=== PATIENT | female | born 1945 | race Caucasian/White ===

== ENCOUNTER → 2017-02-24 | Outpatient (CLI) | payer MEDICARE | LOC: RAD 13:03 | PROVIDERS: ATTEND Internal Medicine | DX: C25.2 Malignant neoplasm of tail of pancreas (principal) | CPT/HCPCS: 71260; 74177 ==

== ENCOUNTER 2017-02-28 06:22 | Day surgery (SDC) | payer MEDICARE ==
[~2017-02-28 06:22] MED LIST: DEXTROSE 5%-1/2 NORMAL SALINE 1,000 ML IV PRN; VANCOMYCIN HCL 500 MG in DEXTROSE 5%-WATER 100 ML IV SCH
[2017-02-28 06:46] LABS: ABSOLUTE BASOPHILS # (AUTO) 0.1 10^3/uL (0.0-0.2); ABSOLUTE EOSINOPHILS # (AUTO) 0.5 10^3/uL (0.0-0.6); ABSOLUTE LYMPHOCYTES (AUTO) 3.4 10^3/uL (0.5-4.7); BASOPHILS % (AUTO) 0.7 % (0-2); EOSINOPHILS % (AUTO) 4.6 % (0-6); HEMATOCRIT 34.4 % (36.0-47.0); HEMOGLOBIN 11.2 g/dL (12.0-15.5); HGB HCT DIFFERENCE -0.8; LYMPHOCYTES % (AUTO) 30.8 % (13-45); MEAN CORPUSCULAR HEMOGLOBIN 28.5 pg (27.0-33.4); MEAN CORPUSCULAR HGB CONC 32.7 g/dL (32.0-36.0); MEAN CORPUSCULAR VOLUME 87 fl (80-97); MONOCYTES % (AUTO) 9.3 % (3-13); RED BLOOD COUNT 3.94 10^6/uL (3.72-5.28); RED CELL DISTRIBUTION WIDTH 15.5 % (11.5-14.0); SEGMENTED NEUTROPHILS % (AUTO) 54.6 % (42-78); WHITE BLOOD COUNT 10.9 10^3/uL (4.0-10.5)
[2017-02-28 06:58] LABS: ANION GAP 9 (5-19); BLOOD UREA NITROGEN 16 mg/dL (7-20); CARBON DIOXIDE 29 mmol/L (22-30); CHLORIDE 104 mmol/L (98-107); CREATININE RESULT 0.69 mg/dL (0.52-1.25); GLUCOSE 112 mg/dL (75-110); POTASSIUM 4.7 mmol/L (3.6-5.0); SODIUM 141.9 mmol/L (137-145)
[2017-02-28] MEDS ORDERED: BACITRACIN INJ 50,000 UNIT VIAL IR SCH (07:45)
--- NOTE | 2017-02-28 08:37 | EKG REPORT ---
SEVERITY:- NORMAL ECG - SINUS RHYTHM LVH : Confirmed by: Laure Diaz 28-Feb-2017 08:36:30
[2017-02-28] MEDS ORDERED: MIDAZOLAM 2 MG/2 ML INJ ONE (08:52)
[2017-02-28] MEDS ORDERED: FENTANYL CITRATE INJ/PF 100 MCG/2 ML AMPUL ONE (08:52)
[2017-02-28] MEDS ORDERED: LIDOCAINE 0.5% INJ-PF (5 MG/ML) 50 ML SDV ONE (08:53)
[2017-02-28] MEDS ORDERED: DIAZEPAM 5 MG TABLET PO ONE (09:15)
[2017-02-28] MEDS ORDERED: VANCOMYCIN HCL 500 MG in DEXTROSE 5%-WATER 100 ML IV ONE (09:20)
--- NOTE | 2017-02-28 10:30 | PDOC DISCHARGE SUMMARY ---
Discharge Summary (SDC) - Discharge Final Diagnosis: Pancreatic cancer Date of Surgery: 02/28/17 Discharge Date: 02/28/17 Condition: Fair Treatment or Instructions: #1 discharge patient after recovery per ASU criteria. #2 dressings to be left in place, clean and dry until office. #3 may shower in 48 hours, keep dressing is clean as possible. #4 hold off work until evaluated in office. #5 medications per medication reconciliation sheet. #86Percocet by prescription.. Also may have one Percocet up to every 2 hours when necessary for pain greater than 4 out of 10 while in the ASU Discharge Diet: As Tolerated Respiratory Treatments at Home: Deep Breathing/Coughing Discharge Activity: Activity As Tolerated Report the Following to Your Physician Immediately: Shortness of Breath, Unusual Bleeding
--- NOTE | 2017-02-28 10:32 | Operative Report ---
Operative Report DATE OF SURGERY: 02/28/17 PREOPERATIVE DIAGNOSIS: Pancreatic cancer POSTOPERATIVE DIAGNOSIS: The capsule post Port-A-Cath insertion. OPERATION: #1 ultrasound evaluation of right internal jugular vein. #2 real- time access into the right internal jugular venous vein under ultrasound guidance. #3 insertion of Port-A-Cath via real-time access in right internal jugular vein. #4 angiogram and interpretation. SURGEON: JANET GALLEGO TISSUE REMOVED OR ALTERED: Not applicable COMPLICATIONS: None ESTIMATED BLOOD LOSS: 5 mL. INTRAOPERATIVE FINDINGS: Satisfactory right internal jugular vein to support port. Estimated 1 cm in diameter. Satisfactory egress of blood and ingress of heparinized solution. Both flow of contrast through the right atrium, ventricle and pulmonary outflow tract. The catheter tip just down in the right atrium. PROCEDURE: After obtaining informed consent, the patient was taken to the [facility] and positioned supine. The [right] neck and chest were prepared with chlorhexidine and draped out with sterile linen. After the " universal timeout", in which it was verified that the patient continued to receive antibiotic, the procedure commenced. A steriley sheathed ultrasound probe was used to evaluate the [ right] internal jugular vein. Local anesthesia was infiltrated adjacent to the probe. Access into the [right] internal jugular vein was obtained using a micropuncture needle, followed by micropuncture wire and then a micropuncture catheter. This was followed by introduction of a 0.035 guidewire the tip of which was placed down into the inferior vena cava . The port sites was marked , locally anesthetized and incision made. Dissection now proceeded to the deep subcutaneous subcutaneous tissues so that a pocket for the port was made. Meticulous hemostasis was secured and the catheter was tunneled between the 2 incisions. Proximally, the catheter was now positioned using a peel-away sheath. Distally the catheter was tailored to an appropriate length and then mated to the port using the contained fixating device. The port was now placed in the pocket and the catheter optimally positioned. The port was accessed with a Diego needle and an angiogram done under digital subtraction. The findings as dictated. With adequate and satisfactory positioning, both lumens of the chamber were irrigated with heparinized solution. The wounds were now closed using interrupted 3-0 PDS to the subcutaneous tissues and a continuous subcuticular suture of 4-0 Monocryl to the skin. These are reinforced with Steri-Strips over benzoin and then dressings applied. Copies of the dictated operative report for Dr. Janet Gallego MD.
[2017-02-28 11:52] VITALS: BP 120/60
== END 2017-02-28 11:45 | disposition home or self-care (01) ==
LOC: CCL 06:22
PROVIDERS: ATTEND Surgery
PROC: 05H533Z Insertion of Infusion Device into Right Subclavian Vein, Percutaneous Approach (ICD-10-PCS; principal; 2017-02-28)
DX: C25.9 Malignant neoplasm of pancreas, unspecified (principal); K21.9 Gastro-esophageal reflux disease without esophagitis; N20.0 Calculus of kidney; F32.9 Major depressive disorder, single episode, unspecified; Z79.899 Other long term (current) drug therapy; Z88.0 Allergy status to penicillin; Z88.1 Allergy status to other antibiotic agents; Z88.2 Allergy status to sulfonamides; Z87.891 Personal history of nicotine dependence; Z85.828 Personal history of other malignant neoplasm of skin
CPT/HCPCS: 36415; 85025; 80048; 36561; 76937; 77001; 71010; 93005; 93010; C1788; C1752; Q9967; J2250; J3490 ×2; J3010; J1644; J3370

== ENCOUNTER → 2017-07-12 | Outpatient (CLI) | payer MEDICARE ==
--- NOTE | 2017-07-12 13:42 | RADIOLOGY REPORT (SQ) ---
EXAM DESCRIPTION: CT CHEST WITH COMPLETED DATE/TIME: 07/12/2017 9:37 am REASON FOR STUDY: PANCREATIC CA (C25.2) C25.2 MALIGNANT NEOPLASM OF TAIL OF PANCREAS COMPARISON: 02/24/2017. TECHNIQUE: CT scan of the chest performed using helical scanning technique with dynamic intravenous contrast injection. Images reviewed with lung, soft tissue and bone windows. Reconstructed coronal and sagittal MPR images reviewed. All images stored on PACS. All CT scanners at this facility use dose modulation, iterative reconstruction, and/or weight based d osing when appropriate to reduce radiation dose to as low as reasonably achievable (ALARA). [facility]: Dose Right [facility]: CareDose [facility]: Dose Right [facility]: Teradose 4D [facility]: [employer] CONTRAST TYPE AND DOSE: contrast/concentration: Isovue 370.00 mg/ml; Total Contrast Delivered: 72.0 ml; Total Saline Delivered: 66.0 ml RENAL FUNCTION: Creatinine 0.7. RADIATION DOSE: . LIMITATIONS: None. FINDINGS: LUNGS AND PLEURA: Mild scarring. No opacities, nodules, masses. No pneumothorax. No effu sions. HILAR AND MEDIASTINAL STRUCTURES: No identified masses or abnormal nodes. HEART AND VASCULAR STRUCTURES: No aneurysm or dissection. No central pulmonary emboli. No pericardi al effusion. HARDWARE: None in the chest. UPPER ABDOMEN: See separate report of the CT of the abdomen. THYROID AND OTHER SOFT TISSUES: No masses. No adenopathy. BONES: No significant finding. OTHER: No other significant finding. IMPRESSION: UNREMARKABLE CT OF THE CHEST WITH IV CONTRAST. NO EVIDENCE OF METASTATIC INVOLVEMENT. TECHNICAL DOCUMENTATION: JOB ID: [id number] Quality ID # 436: Final reports with documentation of one or more dose reduction techniques (e.g., Au tomated exposure control, adjustment of the mA and/or kV according to patient size, use of iterative reconstruction technique) 2010 [employer]- All Rights Reserved
--- NOTE | 2017-07-12 14:02 | RADIOLOGY REPORT (SQ) ---
EXAM DESCRIPTION: CT ABD/PELVIS WITH IV ONLY COMPLETED DATE/TIME: 07/12/2017 9:37 am REASON FOR STUDY: PANCREATIC CA (C25.2) C25.2 MALIGNANT NEOPLASM OF TAIL OF PANCREAS COMPARISON: 02/24/2017. TECHNIQUE: CT scan of the abdomen and pelvis performed using helical scanning technique with dynamic intravenous contrast injection. No oral contrast. Images reviewed with lung, soft tissue, and bone windows. Reconstructed coronal and sagittal MPR images reviewed. Delayed images for evaluation of the urinary system also acquired. All images stored on PACS. All CT scanners at this facility use dose modulation, iterative reconstruction, and/or weight based d osing when appropriate to reduce radiation dose to as low as reasonably achievable (ALARA). [facility]: Dose Right [facility]: CareDose [facility]: Dose Right [facility]: Teradose 4D [facility]: [employer] CONTRAST TYPE AND DOSE: 72 mL Isovue 370- low osmolar. RENAL FUNCTION: Creatinine 0.7. RADIATION DOSE: Up-to-date CT equipment and radiation dose reduction techniques were employed. CTDIv ol: 4.4 - 5.0 mGy. DLP: 933 mGy-cm.. LIMITATIONS: None. FINDINGS: LOWER CHEST: No significant findings. No nodules or infiltrates. LIVER: Normal size. No masses. No dilated ducts. SPLEEN: Post splenectomy. Fluid collection in the subphrenic space has decreased in size, currently measuring 5.6 cm in width and 2 cm in thickness. PANCREAS: No masses. No significant calcifications. Pancreatic duct not dilated. Surgical changes s econdary to resection of the mass in the pancreatic tail. Complex fluid collection appears slightly more well organized. Overall length of 10.5 cm with prior measurement 13.5 cm. Transverse measureme nt slightly smaller at 5.5 cm. GALLBLADDER: Surgically absent. ADRENAL GLANDS: No significant masses or asymmetry. RIGHT KIDNEY AND URETER: No solid masses. No significant calcifications. No hydronephrosis or hyd roureter. LEFT KIDNEY AND URETER: Large cortical cyst unchanged. No solid masses. No significant calcificati ons. No hydronephrosis or hydroureter. AORTA AND VESSELS: No aneurysm. No dissection. Renal arteries, SMA, celiac without stenosis. RETROPERITONEUM: No retroperitoneal adenopathy, hemorrhage or masses. BOWEL AND PERITONEAL CAVITY: No masses or inflammatory changes. No free fluid or peritoneal masses. APPENDIX: Not visualized. PELVIS: No mass. No free fluid. Normal bladder. ABDOMINAL WALL: No masses. No hernias. BONES: No significant or acute findings. OTHER: No other significant finding. IMPRESSION: 1. POST SPLENECTOMY. POSTOPERATIVE FLUID COLLECTION HAS DECREASED IN SIZE SINCE THE PRIOR STUDY A FRANCES. 2. SURGICAL CHANGES FOLLOWING RESECTION OF THE MASS IN THE PANCREATIC TAIL. COMPLEX FLUID COLLECTION APPEARS SLIGHTLY MORE ORGANIZED AND HAS DECREASED IN SIZE SLIGHTLY. 3. STABLE LARGE CORTICAL CYST IN THE LEFT KIDNEY. 4. NO OTHER SIGNIFICANT FINDINGS. TECHNICAL DOCUMENTATION: JOB ID: [id number] Quality ID # 436: Final reports with documentation of one or more dose reduction techniques (e.g., Au tomated exposure control, adjustment of the mA and/or kV according to patient size, use of iterative reconstruction technique) 2010 [employer]- All Rights Reserved
== END ==
LOC: RAD 08:41
PROVIDERS: ATTEND Internal Medicine
DX: C25.2 Malignant neoplasm of tail of pancreas (principal)
CPT/HCPCS: 71260; 74177; 82565

== ENCOUNTER → 2017-10-11 | Outpatient (CLI) | payer MEDICARE ==
--- NOTE | 2017-10-11 10:17 | RADIOLOGY REPORT (SQ) ---
EXAM DESCRIPTION: CT CHEST WITH; CT ABD/PELVIS WITH IV ORAL COMPLETED DATE/TIME: 10/11/2017 8:52 am REASON FOR STUDY: C25.2 MALIGNANT NEOPLASM OF TAIL OF PANCREAS C25.2 MALIGNANT NEOPLASM OF TAIL OF PANCREAS COMPARISON: CT abdomen pelvis 07/12/2017, 02/24/2017, 12/28/2016 CONTRAST TYPE AND DOSE: contrast/concentration: Isovue 370.00 mg/ml; Total Contrast Delivered: 72.0 ml; Total Saline Delivered: 66.0 ml RENAL FUNCTION: Creatinine 0.8 TECHNIQUE: CT scan of the chest performed using helical scanning technique with dynamic intravenous contrast injection. Images reviewed with lung, soft tissue and bone windows. Reconstructed coronal a nd sagittal MPR images reviewed. All images stored on PACS. CT scan of the abdomen and pelvis performed with intravenous and with oral contrastusing helical scan phil technique with dynamic intravenous contrast injection. Images reviewed with lung, soft tissue a nd bone windows. Reconstructed coronal and sagittal MPR images reviewed. Delayed images for evaluat ion of the urinary system also acquired and evaluated. All images stored on PACS. All CT scanners at this facility use dose modulation, iterative reconstruction, and/or weight based d osing when appropriate to reduce radiation dose to as low as reasonably achievable (ALARA). [facility]: Dose Right [facility]: CareDose [facility]: Dose Right [facility]: Teradose 4D [facility]: [employer] RADIATION DOSE: CT Rad equipment meets quality standard of care and radiation dose reduction techniq ues were employed. CTDIvol: 4.4 - 5.4 mGy. DLP: 949 mGy-cm. . LIMITATIONS: None. FINDINGS: CHEST: LUNGS AND PLEURA: No opacities, nodules, masses. No pneumothorax. No effusions. HILAR AND MEDIASTINAL STRUCTURES: No identified masses or abnormal nodes. HEART AND VASCULAR STRUCTURES: No aneurysm or dissection. No central pulmonary emboli. No pericardi al effusion. HARDWARE: Right-sided permanent central line tip superior vena cava THYROID AND OTHER SOFT TISSUES: No masses. No adenopathy. BONES: No significant finding. OTHER: No other significant finding. ABDOMEN AND PELVIS: LIVER: Normal size. No masses. No dilated ducts. SPLEEN: Surgically absent PANCREAS: Original pancreatic tumor seen on 12/28/2016 measured 3.3 x 2.8 cm along the pancreatic tail near the splenic hilum. Since 12/28/2016, patient has had a splenectomy and distal pancreatectomy. Th ere is a complex fluid collection with lobular borders and peripheral mild rim enhancement at the george gical site, pancreatic tail. This measures 10 cm craniocaudad x 6.7 cm AP x 5 cm transverse (was 11. 5 cm craniocaudad x 6.5 cm AP x 5 cm transverse on 07/12/2017. This probably represents a postoperati ve hematoma/seroma rather than recurrent tumor. GALLBLADDER: Surgically absent ADRENAL GLANDS: No significant masses or asymmetry. RIGHT KIDNEY AND URETER: No solid masses. No significant calcification. Subcentimeter cyst right upp er pole kidney. No hydronephrosis or hydroureter. LEFT KIDNEY AND URETER: No solid masses. 8.5 cm cyst left lower pole kidney. No significant calcifi cation. No hydronephrosis or hydroureter. AORTA AND VESSELS: No aneurysm. No dissection. Renal arteries, SMA, celiac without stenosis. RETROPERITONEUM: No retroperitoneal adenopathy, hemorrhage or masses. BOWEL AND PERITONEAL CAVITY: No masses or inflammatory changes. No free fluid or peritoneal masses. APPENDIX: Surgically absent ABDOMINAL WALL: No masses. No hernias. BONES: No significant or acute findings. PELVIS: No other significant finding. Post hysterectomy. No free pelvic fluid. No pelvic masses or adenopathy IMPRESSION: No CT evidence of metastatic pancreatic neoplasm to the chest abdomen or pelvis Postoperative complex fluid collection at the pancreatic tail unchanged from 07/12/2017 TECHNICAL DOCUMENTATION: JOB ID: [id number] Quality ID # 436: Final reports with documentation of one or more dose reduction techniques (e.g., Au tomated exposure control, adjustment of the mA and/or kV according to patient size, use of iterative reconstruction technique) 2010 [employer]- All Rights Reserved
== END ==
LOC: RAD 08:49
PROVIDERS: ATTEND Internal Medicine
DX: C25.2 Malignant neoplasm of tail of pancreas (principal)
CPT/HCPCS: 71260; 74177; 82565

== ENCOUNTER → 2018-01-09 | Outpatient (CLI) | payer MEDICARE ==
--- NOTE | 2018-01-09 15:30 | RADIOLOGY REPORT (SQ) ---
EXAM DESCRIPTION: CT CHEST WITH COMPLETED DATE/TIME: 01/09/2018 10:55 am REASON FOR STUDY: PANCREATIC CA (C25.2) C25.2 MALIGNANT NEOPLASM OF TAIL OF PANCREAS COMPARISON: 10/11/2017 TECHNIQUE: CT scan of the chest performed using helical scanning technique with dynamic intravenous contrast injection. Images reviewed with lung, soft tissue and bone windows. Reconstructed coronal and sagittal MPR images reviewed. All images stored on PACS. All CT scanners at this facility use dose modulation, iterative reconstruction, and/or weight based d osing when appropriate to reduce radiation dose to as low as reasonably achievable (ALARA). [facility]: Dose Right [facility]: CareDose [facility]: Dose Right [facility]: Teradose 4D [facility]: [employer] CONTRAST TYPE AND DOSE: 74.0 cc Isovue 370 RENAL FUNCTION: Creatinine 0.8 RADIATION DOSE: Total exam DLP: 927.21 LIMITATIONS: None. FINDINGS: LUNGS AND PLEURA: Stable focal ground-glass opacity in the right lower lobe, axial image 76, series 6. No acute pulmonary consolidation. No pneumothorax or pleural effusion. The central a irways are clear. Small stable appearing fat containing left diaphragmatic hernia. HILAR AND MEDIASTINAL STRUCTURES: No significant interval changes. HEART AND VASCULAR STRUCTURES: Atherosclerotic changes involving the thoracic aorta. No aneurysm or dissection. No pericardial effusion. HARDWARE: Right Pmiwkh-E-Uuop catheter, stable finding. UPPER ABDOMEN: Please see CT abdomen report. THYROID AND OTHER SOFT TISSUES: No masses. No adenopathy. BONES: The osseous structures are stable in appearance. OTHER: No other significant finding. IMPRESSION: 1 No significant interval changes since the prior examination dated 10/11/2017. TECHNICAL DOCUMENTATION: JOB ID: [id number] Quality ID # 436: Final reports with documentation of one or more dose reduction techniques (e.g., Au tomated exposure control, adjustment of the mA and/or kV according to patient size, use of iterative reconstruction technique) 2010 [employer]- All Rights Reserved Reading location - IP/workstation name: [email or web address]
--- NOTE | 2018-01-09 15:41 | RADIOLOGY REPORT (SQ) ---
EXAM DESCRIPTION: CT ABD/PELVIS WITH IV ONLY COMPLETED DATE/TIME: 01/09/2018 10:55 am REASON FOR STUDY: PANCREATIC CA (C25.2) C25.2 MALIGNANT NEOPLASM OF TAIL OF PANCREAS COMPARISON: 10/11/2017 TECHNIQUE: CT scan of the abdomen and pelvis performed using helical scanning technique with dynamic intravenous contrast injection. No oral contrast. Images reviewed with lung, soft tissue, and bone windows. Reconstructed coronal and sagittal MPR images reviewed. Delayed images for evaluation of the urinary system also acquired. All images stored on PACS. All CT scanners at this facility use dose modulation, iterative reconstruction, and/or weight based d osing when appropriate to reduce radiation dose to as low as reasonably achievable (ALARA). [facility]: Dose Right [facility]: CareDose [facility]: Dose Right [facility]: Teradose 4D [facility]: [employer] CONTRAST TYPE AND DOSE: contrast/concentration: Isovue 370.00 mg/ml; Total Contrast Delivered: 74.0 ml; Total Saline Delivered: 66.0 ml RENAL FUNCTION: Creatinine 0.8 RADIATION DOSE: CT Rad equipment meets quality standard of care and radiation dose reduction techniq ues were employed. CTDIvol: 4.4 - 5.1 mGy. DLP: 927 mGy-cm.. LIMITATIONS: None. FINDINGS: LOWER CHEST: No significant findings. No nodules or infiltrates. LIVER: Normal size. No masses. No dilated ducts. SPLEEN: Prior splenectomy. PANCREAS: Prior distal pancreatectomy. No significant interval change in the predominantly hypoatte nuated complex fluid collection at the prior surgical site, pancreatic tail. GALLBLADDER: Prior cholecystectomy. ADRENAL GLANDS: No significant masses or asymmetry. RIGHT KIDNEY AND URETER: Small stable right renal cyst. No significant calcifications. Extrarenal p kandi on the right, normal anatomic variant. No hydronephrosis or hydroureter. LEFT KIDNEY AND URETER: Stable large left renal cyst. No solid masses. No significant calcificati ons. No hydronephrosis or hydroureter. AORTA AND VESSELS: No aneurysm. No dissection. Renal arteries, SMA, celiac without stenosis. RETROPERITONEUM: No retroperitoneal adenopathy, hemorrhage or masses. BOWEL AND PERITONEAL CAVITY: No masses or inflammatory changes. No free fluid or peritoneal masses. APPENDIX: Prior appendectomy. PELVIS: Prior hysterectomy. No mass. No free fluid. Normal bladder. ABDOMINAL WALL: No masses. No hernias. BONES: The osseous structures are stable in appearance. OTHER: No other significant finding. IMPRESSION: 1 No significant interval changes since the previous examination dated 10/11/2017. 2. Post operative changes in the region of the distal tail of the pancreas. The post operative compl ex fluid collection at the surgical site is basically unchanged. 3. Additional stable findings. TECHNICAL DOCUMENTATION: JOB ID: [id number] Quality ID # 436: Final reports with documentation of one or more dose reduction techniques (e.g., Au tomated exposure control, adjustment of the mA and/or kV according to patient size, use of iterative reconstruction technique) 2010 [employer]- All Rights Reserved Reading location - IP/workstation name: [email or web address]
== END ==
LOC: RAD 09:35
PROVIDERS: ATTEND Internal Medicine
DX: C25.2 Malignant neoplasm of tail of pancreas (principal)
CPT/HCPCS: 71260; 74177; 82565

== ENCOUNTER → 2018-04-10 | Outpatient (CLI) | payer MEDICARE ==
--- NOTE | 2018-04-10 11:43 | RADIOLOGY REPORT (SQ) ---
EXAM DESCRIPTION: CT CHEST WITH; CT ABD/PELVIS WITH IV ONLY COMPLETED DATE/TIME: 04/10/2018 8:19 am REASON FOR STUDY: PANCREATIC CA C25.2 MALIGNANT NEOPLASM OF TAIL OF PANCREAS COMPARISON: CT abdomen pelvis 12/28/2016 CT chest abdomen pelvis 07/12/2017, 10/11/2017, 01/09/2018 CONTRAST TYPE AND DOSE: contrast/concentration: Isovue 370.00 mg/ml; Total Contrast Delivered: 74.0 ml; Total Saline Delivered: 66.0 ml RENAL FUNCTION: Creatinine 0.9 TECHNIQUE: CT scan of the chest performed using helical scanning technique with dynamic intravenous contrast injection. Images reviewed with lung, soft tissue and bone windows. Reconstructed coronal a nd sagittal MPR images reviewed. All images stored on PACS. CT scan of the abdomen and pelvis performed with intravenous and without oral contrastusing helical s neo technique with dynamic intravenous contrast injection. Images reviewed with lung, soft tissu e and bone windows. Reconstructed coronal and sagittal MPR images reviewed. Delayed images for eval uation of the urinary system also acquired and evaluated. All images stored on PACS. All CT scanners at this facility use dose modulation, iterative reconstruction, and/or weight based d osing when appropriate to reduce radiation dose to as low as reasonably achievable (ALARA). [facility]: Dose Right [facility]: CareDose [facility]: Dose Right [facility]: Teradose 4D [facility]: [employer] RADIATION DOSE: CT Rad equipment meets quality standard of care and radiation dose reduction techniq ues were employed. CTDIvol: 4.4 - 5.3 mGy. DLP: 955 mGy-cm. . LIMITATIONS: None. FINDINGS: CHEST: LUNGS AND PLEURA: No worrisome pulmonary nodules. No focal infiltrates. No pleural effusion or pneu mothorax. HILAR AND MEDIASTINAL STRUCTURES: No identified masses or abnormal nodes. HEART AND VASCULAR STRUCTURES: No aneurysm or dissection. No central pulmonary emboli. No pericardi al effusion. HARDWARE: Right-sided permanent central line tip superior vena cava THYROID AND OTHER SOFT TISSUES: No masses. No adenopathy. BONES: No significant finding. OTHER: No other significant finding. ABDOMEN AND PELVIS: LIVER: Normal size. No masses. No dilated ducts. SPLEEN: Surgically absent PANCREAS: Pancreatic tail has been resected. At the site of resection, a 6.3 x 5.1 cm near water den sity cyst is present, unchanged from 07/12/2017. GALLBLADDER: Surgically absent ADRENAL GLANDS: No significant masses or asymmetry. RIGHT KIDNEY AND URETER: No solid masses. No significant calcification. No hydronephrosis or hydroure ter. LEFT KIDNEY AND URETER: No solid masses. 8.5 x 7 cm left midpole renal cortical cyst. No significan t calcification. No hydronephrosis or hydroureter. AORTA AND VESSELS: No aneurysm. No dissection. Renal arteries, SMA, celiac without stenosis. RETROPERITONEUM: No retroperitoneal adenopathy, hemorrhage or masses. BOWEL AND PERITONEAL CAVITY: No masses or inflammatory changes. No free fluid or peritoneal masses. APPENDIX: Surgically absent ABDOMINAL WALL: No masses. No hernias. PELVIS: Post hysterectomy. No free pelvic fluid. No adenopathy or masses. BONES: Old fracture right inferior pubic ramus. OTHER: No other significant finding. IMPRESSION: No CT evidence of metastatic disease to the chest abdomen or pelvis Post distal pancreatectomy and splenectomy with stable 6.3 x 5.1 cm cyst at the operative bed, unchan ged from studies dating back to 07/12/2017. TECHNICAL DOCUMENTATION: JOB ID: [id number] Quality ID # 436: Final reports with documentation of one or more dose reduction techniques (e.g., Au tomated exposure control, adjustment of the mA and/or kV according to patient size, use of iterative reconstruction technique) 2010 [employer]- All Rights Reserved Reading location - IP/workstation name: [email or web address]
== END ==
LOC: RAD 07:29
PROVIDERS: ATTEND Internal Medicine
DX: C25.2 Malignant neoplasm of tail of pancreas (principal)
CPT/HCPCS: 71260; 74177; 82565

== ENCOUNTER → 2018-07-21 | Outpatient (CLI) | payer MEDICARE ==
--- NOTE | 2018-07-21 11:03 | RADIOLOGY REPORT (SQ) ---
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 Images reviewed with lung, soft tissue and bone windows. Reconstructed coronal and sagittal MPR and MIP images reviewed. All images stored on PACS. All CT scanners at this facility use dose modulation, iterative reconstruction, and/or weight based d osing when appropriate to reduce radiation dose to as low as reasonably achievable (ALARA). [facility]: Dose Right [facility]: CareDose [facility]: Dose Right [facility]: Teradose 4D [facility]: [employer] CONTRAST TYPE AND DOSE: contrast/concentration: Isovue 350.00 mg/ml; Total Contrast Delivered: 75.0 ml; Total Saline Delivered: 67.0 ml RENAL FUNCTION: Creatinine 0.9 RADIATION DOSE: . LIMITATIONS: None. FINDINGS: LUNGS AND PLEURA: No nodules or opacifications. No masses. There is a small localized ev entration of the left hemidiaphragm posteriorly that contains only fat. HILAR AND MEDIASTINAL STRUCTURES: No identified masses or abnormal nodes. HEART AND VASCULAR STRUCTURES: No aneurysm or dissection. No central pulmonary emboli. No pericardi al effusion. HARDWARE: Injection port on the right. UPPER ABDOMEN: See separate report of the CT of the abdomen. THYROID AND OTHER SOFT TISSUES: No masses. No adenopathy. BONES: No significant finding. OTHER: No other significant finding. IMPRESSION: There is no evidence of metastases in the thorax. TECHNICAL DOCUMENTATION: JOB ID: [id number] Quality ID # 436: Final reports with documentation of one or more dose reduction techniques (e.g., Au tomated exposure control, adjustment of the mA and/or kV according to patient size, use of iterative reconstruction technique) 2010 [employer]- All Rights Reserved Reading location - IP/workstation name: [email or web address]
--- NOTE | 2018-07-21 11:13 | RADIOLOGY REPORT (SQ) ---
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 No oral contrast. Images reviewed with lung, soft tissue, and bone windows. Reconstructed coronal and sagittal MPR images reviewed. Delayed images for evaluation of the urinary system also acquired. All images stored on PACS. All CT scanners at this facility use dose modulation, iterative reconstruction, and/or weight based d osing when appropriate to reduce radiation dose to as low as reasonably achievable (ALARA). [facility]: Dose Right [facility]: CareDose [facility]: Dose Right [facility]: Teradose 4D [facility]: [employer] CONTRAST TYPE AND DOSE: 75 mL Omnipaque 350- low osmolar. RENAL FUNCTION: Creatinine 0.9 RADIATION DOSE: CT Rad equipment meets quality standard of care and radiation dose reduction techniq ues were employed. CTDIvol: 4.4 - 5.4 mGy. DLP: 947 mGy-cm.. LIMITATIONS: None. FINDINGS: LOWER CHEST: See separate report of the CT of the chest. LIVER: Normal size. No masses. No dilated ducts. SPLEEN: Surgically absent. PANCREAS: A portion the tail of the pancreas is absent. Surgical clips are present. There is a pers istent 6 cm fluid collection associated with the tail of the pancreas. This shows no change. GALLBLADDER: Surgically absent. ADRENAL GLANDS: No significant masses or asymmetry. RIGHT KIDNEY AND URETER: No solid masses. No significant calcifications. No hydronephrosis or hyd roureter. LEFT KIDNEY AND URETER: No solid masses. There is a 9 cm cortical cyst. No significant calcificati ons. No hydronephrosis or hydroureter. AORTA AND VESSELS: No aneurysm. No dissection. Renal arteries, SMA, celiac without stenosis. RETROPERITONEUM: No retroperitoneal adenopathy, hemorrhage or masses. BOWEL AND PERITONEAL CAVITY: No masses or inflammatory changes. No free fluid or peritoneal masses. APPENDIX: Surgically absent. PELVIS: No mass. No free fluid. Normal bladder. ABDOMINAL WALL: No masses. No hernias. BONES: No significant or acute findings. OTHER: No other significant finding. IMPRESSION: Surgical changes with resection of a portion of the tail of the pancreas. Spleen is bee n resected. There is a stable 6 cm fluid collection associated with the tail of the pancreas. No ev idence of metastases in the abdomen or pelvis. TECHNICAL DOCUMENTATION: JOB ID: [id number] Quality ID # 436: Final reports with documentation of one or more dose reduction techniques (e.g., Au tomated exposure control, adjustment of the mA and/or kV according to patient size, use of iterative reconstruction technique) 2010 [employer]- All Rights Reserved Reading location - IP/workstation name: [email or web address]
== END ==
LOC: RAD 09:47
PROVIDERS: ATTEND Internal Medicine
DX: C25.2 Malignant neoplasm of tail of pancreas (principal)
CPT/HCPCS: 71260; 74177; 82565

== ENCOUNTER → 2019-01-19 | Outpatient (CLI) | payer MEDICARE ==
--- NOTE | 2019-01-19 10:49 | RADIOLOGY REPORT (SQ) ---
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 Images reviewed with lung, soft tissue and bone windows. Reconstructed coronal and sagittal MPR and MIP images reviewed. All images stored on PACS. All CT scanners at this facility use dose modulation, iterative reconstruction, and/or weight based d osing when appropriate to reduce radiation dose to as low as reasonably achievable (ALARA). [facility]: Dose Right [facility]: CareDose [facility]: Dose Right [facility]: Teradose 4D [facility]: [employer] CONTRAST TYPE AND DOSE: See separate report of the same date. RENAL FUNCTION: See separate report. RADIATION DOSE: . LIMITATIONS: None. FINDINGS: LUNGS AND PLEURA: No opacities, nodules, masses. No pneumothorax. No effusions. HILAR AND MEDIASTINAL STRUCTURES: No identified masses or abnormal nodes. HEART AND VASCULAR STRUCTURES: No aneurysm or dissection. No central pulmonary emboli. No pericardi al effusion. HARDWARE: None in the chest. UPPER ABDOMEN: See separate report of the CT of the abdomen. THYROID AND OTHER SOFT TISSUES: No masses. No adenopathy. BONES: Nothing acute. OTHER: No other significant finding. IMPRESSION: No evidence of metastatic disease. TECHNICAL DOCUMENTATION: JOB ID: [id number] Quality ID # 436: Final reports with documentation of one or more dose reduction techniques (e.g., Au tomated exposure control, adjustment of the mA and/or kV according to patient size, use of iterative reconstruction technique) 2010 [employer]- All Rights Reserved Reading location - IP/workstation name: [email or web address]
--- NOTE | 2019-01-19 10:53 | RADIOLOGY REPORT (SQ) ---
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 No oral contrast. Images reviewed with lung, soft tissue, and bone windows. Reconstructed coronal and sagittal MPR images reviewed. Delayed images for evaluation of the urinary system also acquired. All images stored on PACS. All CT scanners at this facility use dose modulation, iterative reconstruction, and/or weight based d osing when appropriate to reduce radiation dose to as low as reasonably achievable (ALARA). [facility]: Dose Right [facility]: CareDose [facility]: Dose Right [facility]: Teradose 4D [facility]: [employer] CONTRAST TYPE AND DOSE: contrast/concentration: Isovue 350.00 mg/ml; Total Contrast Delivered: 82.0 ml; Total Saline Delivered: 68.0 ml RENAL FUNCTION: Creatinine 0.8 RADIATION DOSE: CT Rad equipment meets quality standard of care and radiation dose reduction techniq ues were employed. CTDIvol: 4.4 - 5.8 mGy. DLP: 744 mGy-cm.. LIMITATIONS: None. FINDINGS: LOWER CHEST: See separate report of the CT of the chest. LIVER: Normal size. No masses. No dilated ducts. SPLEEN: Surgically absent. PANCREAS: Resection of the tail. Adjacent chronic fluid collection measuring about 6 cm. No ductal dilatation. GALLBLADDER: Surgically absent. ADRENAL GLANDS: No significant masses or asymmetry. RIGHT KIDNEY AND URETER: No solid masses. No significant calcifications. No hydronephrosis or hyd roureter. LEFT KIDNEY AND URETER: Stable large lower pole cyst. No significant calcifications. No hydroneph rosis or hydroureter. AORTA AND VESSELS: No aneurysm. No dissection. Renal arteries, SMA, celiac without stenosis. RETROPERITONEUM: No retroperitoneal adenopathy, hemorrhage or masses. BOWEL AND PERITONEAL CAVITY: No masses or inflammatory changes. No free fluid or peritoneal masses. APPENDIX: Surgically absent. PELVIS: No mass. No free fluid. Normal bladder. ABDOMINAL WALL: No masses. No hernias. BONES: Nothing acute. OTHER: No other significant finding. IMPRESSION: Partial pancreatectomy. No evidence of metastatic disease. TECHNICAL DOCUMENTATION: JOB ID: [id number] Quality ID # 436: Final reports with documentation of one or more dose reduction techniques (e.g., Au tomated exposure control, adjustment of the mA and/or kV according to patient size, use of iterative reconstruction technique) 2010 [employer]- All Rights Reserved Reading location - IP/workstation name: [email or web address]
== END ==
LOC: RAD 09:13
PROVIDERS: ATTEND Internal Medicine
DX: C25.2 Malignant neoplasm of tail of pancreas (principal); N28.1 Cyst of kidney, acquired
CPT/HCPCS: 71260; 74177; 82565

== ENCOUNTER → 2019-07-25 | Outpatient (CLI) | payer MEDICARE ==
--- NOTE | 2019-07-25 10:13 | RADIOLOGY REPORT (SQ) ---
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 TECHNIQUE: CT scan of the chest performed using helical scanning technique with dynamic intravenous contrast injection. Images reviewed with lung, soft tissue and bone windows. Reconstructed coronal a nd sagittal MPR images reviewed. All images stored on PACS. All CT scanners at this facility use dose modulation, iterative reconstruction, and/or weight based d osing when appropriate to reduce radiation dose to as low as reasonably achievable (ALARA). [facility]: Dose Right [facility]: CareDose [facility]: Dose Right [facility]: Teradose 4D [facility]: [employer] RADIATION DOSE: CT Rad equipment meets quality standard of care and radiation dose reduction techniq ues were employed. CTDIvol: 4.5 - 5.9 mGy. DLP: 739 mGy-cm. . LIMITATIONS: None. FINDINGS: AXILLAE: No adenopathy. CHEST WALL: No masses. No subcutaneous air. LUNGS: No nodules or masses. No pneumothorax. No infiltrates. PLEURA: No effusions. No calcifications. THYROID: No masses or significant asymmetry. HILAR AND MEDIASTINAL STRUCTURES: No identified masses or abnormal nodes. AORTA AND GREAT VESSELS: No aneurysm. No dissection. PULMONARY ARTERIES: No identified pulmonary emboli. Study not optimized for the pulmonary arteries. HEART: No pericardial effusion. HARDWARE AND LIFELINES: None. BONES: No significant finding. OTHER: No other significant finding. IMPRESSION: No acute findings in the chest. No evidence of metastatic disease. COMPARISON: None. RADIATION DOSE: CT Rad equipment meets quality standard of care and radiation dose reduction techniq ues were employed. CTDIvol: 4.5 - 5.9 mGy. DLP: 739 mGy-cm. mGy. TECHNIQUE: CT scan of the abdomen and pelvis performed with intravenous and oral contrast using shon kirk scanning technique with dynamic intravenous contrast injection. Images reviewed with lung, soft tissue and bone windows. Reconstructed coronal and sagittal MPR images reviewed. Delayed images for evaluation of the urinary system also acquired and evaluated. All images stored on PACS. All CT scanners at this facility use dose modulation, iterative reconstruction, and/or weight based d osing when appropriate to reduce radiation dose to as low as reasonably achievable (ALARA). [facility]: Dose Right [facility]: [employer] [facility]: Dose Right [facility]: Teradose 4D [facility]: [employer] FINDINGS: LIVER: Normal size. No masses. No dilated ducts. SPLEEN: Normal size. No focal lesions. PANCREAS: Postsurgical changes with evidence of prior partial pancreatectomy. No focal lesions. GALLBLADDER: Surgically absent. ADRENAL GLANDS: No significant masses or asymmetry. RIGHT KIDNEY AND URETER: No solid masses. There is a small cyst in the inferior pole. No significa nt calcifications. No hydronephrosis or hydroureter. LEFT KIDNEY AND URETER: Large left renal cyst. No solid masses. Largest diameter is 10.7 cm. No s ignificant calcifications. No hydronephrosis or hydroureter. AORTA AND VESSELS: No aneurysm. No dissection. Renal arteries, SMA, celiac without stenosis. RETROPERITONEUM: No retroperitoneal adenopathy, hemorrhage or masses. LARGE AND SMALL BOWEL: No dilatation. No masses. No wall thickening. APPENDIX: Surgically absent. ABDOMINAL WALL: No hernia or masses. PERITONEAL CAVITY: No free air. No free fluid. No peritoneal implants or masses. PELVIS: No mass or free fluid. Normal bladder. Prior hysterectomy. BONES: No significant or acute findings. OTHER: No other significant finding. IMPRESSION: No evidence of metastatic disease in the abdomen or pelvis. TECHNICAL DOCUMENTATION: JOB ID: [id number] Quality ID # 436: Final reports with documentation of one or more dose reduction techniques (e.g., Au tomated exposure control, adjustment of the mA and/or kV according to patient size, use of iterative reconstruction technique) 2010 [employer]- All Rights Reserved Reading location - IP/workstation name: [email or web address]
== END ==
LOC: RAD 08:47
PROVIDERS: ATTEND Internal Medicine
DX: C25.2 Malignant neoplasm of tail of pancreas (principal)
CPT/HCPCS: 71260; 74177; 82565

== ENCOUNTER → 2020-03-18 | Outpatient (CLI) | payer MEDICARE ==
--- NOTE | 2020-03-18 10:49 | RADIOLOGY REPORT (SQ) ---
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 TECHNIQUE: CT scan of the chest performed using helical scanning technique with dynamic intravenous contrast injection. Images reviewed with lung, soft tissue and bone windows. Reconstructed coronal and sagittal MPR and MIP images reviewed. All images stored on PACS. All CT scanners at this facility use dose modulation, iterative reconstruction, and/or weight based d osing when appropriate to reduce radiation dose to as low as reasonably achievable (ALARA). [facility]: Dose Right [facility]: CareDose [facility]: Dose Right [facility]: Teradose 4D [facility]: [employer] CONTRAST TYPE AND DOSE: 83 mL Omnipaque 350- low osmolar. RENAL FUNCTION: GFR > 60. LIMITATIONS: None. FINDINGS: LUNGS AND PLEURA: The trachea and main bronchi are patent. There is no consolidation, coni und-glass opacification, pleural effusion or greater than 6 mm pulmonary nodule. HILAR AND MEDIASTINAL STRUCTURES: No adenopathy or mass. HEART AND VASCULAR STRUCTURES: No aneurysm or dissection of the thoracic aorta. No cardiomegaly or p ericardial effusion. HARDWARE: None in the chest. UPPER ABDOMEN: Refer to the separate report of the CT of the abdomen. THYROID AND OTHER SOFT TISSUES: No adenopathy or mass. BONES: No acute fracture or osseous lesion. OTHER: No other finding. IMPRESSION: No acute cardiopulmonary process. TECHNICAL DOCUMENTATION: JOB ID: [id number] Quality ID # 436: Final reports with documentation of one or more dose reduction techniques (e.g., Au tomated exposure control, adjustment of the mA and/or kV according to patient size, use of iterative reconstruction technique) 2010 [employer]- All Rights Reserved Reading location - IP/workstation name: [email or web address]
--- NOTE | 2020-03-18 15:49 | RADIOLOGY REPORT (SQ) ---
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 No oral contrast. Images reviewed with lung, soft tissue, and bone windows. Reconstructed coronal and sagittal MPR images reviewed. Delayed images for evaluation of the urinary system also acquired. All images stored on PACS. All CT scanners at this facility use dose modulation, iterative reconstruction, and/or weight based d osing when appropriate to reduce radiation dose to as low as reasonably achievable (ALARA). [facility]: Dose Right [facility]: CareDose [facility]: Dose Right [facility]: Teradose 4D [facility]: [employer] CONTRAST TYPE AND DOSE: Contrast/concentration: Isovue 350.00 mg/ml; Total Contrast Delivered: 83.0 ml; Total Saline Delivered: 44.0 ml RENAL FUNCTION: Creatinine 0.8 milligrams/deciliter. RADIATION DOSE: CT Rad equipment meets quality standard of care and radiation dose reduction techniq ues were employed. CTDIvol: 4.4 - 5.8 mGy. DLP: 1014 mGy-cm.. LIMITATIONS: None. FINDINGS: LOWER CHEST: Refer to the separate report of the CT of the chest. LIVER: Nonspecific geographic area of high attenuation in the left hepatic lobe that could represent a perfusion variant. The portal veins are patent. There is no hepatic mass. SPLEEN: Surgically absent. PANCREAS: Status post distal pancreatectomy. The postoperative fluid collection posterior to the rem nant of the pancreas is unchanged in size and it measures 4.3 cm in transverse diameter. GALLBLADDER: Surgically absent. ADRENAL GLANDS: No mass or asymmetry. RIGHT KIDNEY AND URETER: No solid mass, hydronephrosis, nephrolithiasis, hydroureter or ureterolithia sis. LEFT KIDNEY AND URETER: 11 x 10 cm cyst in the lower pole of the kidney. There is no solid mass, hyd ronephrosis, nephrolithiasis, hydroureter or ureterolithiasis. AORTA AND VESSELS: No aneurysm or dissection of the abdominal aorta. RETROPERITONEUM: No retroperitoneal adenopathy, hemorrhage or mass. BOWEL AND PERITONEAL CAVITY: No bowel obstruction, bowel wall thickening or pericolonic/ perienteric inflammation. No mesenteric adenopathy, free intraperitoneal fluid or mesenteric/ omental inflammati on. APPENDIX: Unable to identify the appendix. PELVIS: The uterus is surgically absent. There is no abnormality of the adnexa that is apparent on C T. The urinary bladder is normal in appearance. ABDOMINAL WALL: No mass or hernia. BONES: No fracture or osseous lesion. OTHER: No other finding. IMPRESSION: Status post distal pancreatectomy and splenectomy. The size of the postoperative collec tion posterior to the remnant of the pancreas is unchanged and it measures 4.[address] There is no acute intra-abdominal abnormality or evidence of metastases. TECHNICAL DOCUMENTATION: JOB ID: [id number] Quality ID # 436: Final reports with documentation of one or more dose reduction techniques (e.g., Au tomated exposure control, adjustment of the mA and/or kV according to patient size, use of iterative reconstruction technique) 2010 [employer]- All Rights Reserved Reading location - IP/workstation name: [email or web address]
== END ==
LOC: RAD 08:51
PROVIDERS: ATTEND Internal Medicine
DX: C25.2 Malignant neoplasm of tail of pancreas (principal)
CPT/HCPCS: 71260; 74177; 82565

== ENCOUNTER → 2020-07-01 | Outpatient (CLI) | payer MEDICARE ==
--- NOTE | 2020-07-01 13:17 | RADIOLOGY REPORT (SQ) ---
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 Images reviewed with lung, soft tissue and bone windows. Reconstructed coronal and sagittal MPR and MIP images reviewed. All images stored on PACS. All CT scanners at this facility use dose modulation, iterative reconstruction, and/or weight based d osing when appropriate to reduce radiation dose to as low as reasonably achievable (ALARA). [facility]: Dose Right [facility]: CareDose [facility]: Dose Right [facility]: Teradose 4D [facility]: [employer] CONTRAST TYPE AND DOSE: 79 mL Omnipaque 350- low osmolar. RENAL FUNCTION: Not recorded here. Refer to the technologist's notes. RADIATION DOSE: . LIMITATIONS: None. FINDINGS: LUNGS AND PLEURA: No opacities, nodules, masses. No pneumothorax. No effusions. HILAR AND MEDIASTINAL STRUCTURES: No identified masses or abnormal nodes. HEART AND VASCULAR STRUCTURES: No aneurysm or dissection. No central pulmonary emboli. No pericardi al effusion. HARDWARE: None in the chest. UPPER ABDOMEN: See separate report of the CT of the abdomen. THYROID AND OTHER SOFT TISSUES: No masses. No adenopathy. BONES: No significant finding. OTHER: No other significant finding. IMPRESSION: There is no evidence of metastatic disease in the chest. TECHNICAL DOCUMENTATION: JOB ID: [id number] Quality ID # 436: Final reports with documentation of one or more dose reduction techniques (e.g., Au tomated exposure control, adjustment of the mA and/or kV according to patient size, use of iterative reconstruction technique) 2010 [employer]- All Rights Reserved Reading location - IP/workstation name: [email or web address]
--- NOTE | 2020-07-01 13:28 | RADIOLOGY REPORT (SQ) ---
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 No oral contrast. Images reviewed with lung, soft tissue, and bone windows. Reconstructed coronal and sagittal MPR images reviewed. Delayed images for evaluation of the urinary system also acquired. All images stored on PACS. All CT scanners at this facility use dose modulation, iterative reconstruction, and/or weight based d osing when appropriate to reduce radiation dose to as low as reasonably achievable (ALARA). [facility]: Dose Right [facility]: CareDose [facility]: Dose Right [facility]: Teradose 4D [facility]: [employer] CONTRAST TYPE AND DOSE: contrast/concentration: Isovue 350.00 mmol/ml; Total Contrast Delivered: 79. 0 ml; Total Saline Delivered: 65.0 ml RENAL FUNCTION: Not recorded here. Refer to technologist's notes. RADIATION DOSE: CT Rad equipment meets quality standard of care and radiation dose reduction techniq ues were employed. CTDIvol: 4.5 - 5.7 mGy. DLP: 1013 mGy-cm.. LIMITATIONS: None. FINDINGS: LOWER CHEST: See separate report of the CT of the chest. LIVER: Normal size. No masses. No dilated ducts. SPLEEN: Surgically absent. 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 There is a stable p ostop fluid collection arising from the surgical site. This measures 45 mm in transverse diameter. GALLBLADDER: Surgically absent. ADRENAL GLANDS: No significant masses or asymmetry. RIGHT KIDNEY AND URETER: No solid masses. No significant calcifications. No hydronephrosis or hyd roureter. LEFT KIDNEY AND URETER: No solid masses. There is 11 cm cyst arising from the left kidney. No sign ificant calcifications. No hydronephrosis or hydroureter. AORTA AND VESSELS: No aneurysm. No dissection. Renal arteries, SMA, celiac without stenosis. RETROPERITONEUM: No retroperitoneal adenopathy, hemorrhage or masses. BOWEL AND PERITONEAL CAVITY: No masses or inflammatory changes. No free fluid or peritoneal masses. APPENDIX: Not identified. PELVIS: No mass. No free fluid. Normal bladder. ABDOMINAL WALL: No masses. No hernias. BONES: No significant or acute findings. OTHER: No other significant finding. IMPRESSION: 1. There is no evidence of recurrent or metastatic neoplasm in the abdomen or pelvis. 2. Large left renal cyst. 3. Stable postoperative fluid collection at the surgical site. TECHNICAL DOCUMENTATION: JOB ID: [id number] Quality ID # 436: Final reports with documentation of one or more dose reduction techniques (e.g., Au tomated exposure control, adjustment of the mA and/or kV according to patient size, use of iterative reconstruction technique) 2010 [employer]- All Rights Reserved Reading location - IP/workstation name: [email or web address]
== END ==
LOC: RAD 07:56
PROVIDERS: ATTEND Internal Medicine
DX: C25.2 Malignant neoplasm of tail of pancreas (principal)
CPT/HCPCS: 71260; 74177; 82565

== ENCOUNTER → 2020-10-01 | Outpatient (CLI) | payer MEDICARE ==
--- NOTE | 2020-10-01 16:03 | RADIOLOGY REPORT (SQ) ---
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 0 ml; Total Saline Delivered: 37.0 ml Omnipaque 350 80 cc RENAL FUNCTION: Creatinine 0.95 COMPARISON: 07/01/2020 RADIATION DOSE: CT Rad equipment meets quality standard of care and radiation dose reduction techniq ues were employed. CTDIvol: 4.4 - 5.6 mGy. DLP: 696 mGy-cm.mGy. TECHNIQUE: CT scan of the abdomen and pelvis performed with intravenous and oral contrast using shon kirk scanning technique with dynamic intravenous contrast injection. Images reviewed with lung, soft tissue and bone windows. Reconstructed coronal and sagittal MPR images reviewed. Delayed images for evaluation of the urinary system also acquired and evaluated. All images stored on PACS. All CT scanners at this facility use dose modulation, iterative reconstruction, and/or weight based d osing when appropriate to reduce radiation dose to as low as reasonably achievable (ALARA). [facility]: Dose Right [facility]: SureCare [facility]: Dose Right [facility]: Teradose 4D [facility]: VelociData FINDINGS: LIVER: Normal size. No masses. No dilated ducts. SPLEEN: Absent. 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 There is against a th e complex postoperative collection along the pancreatic tail measuring 4.0 cm transversely, previousl y 4.5 cm no new soft tissue masses. No pancreatic ductal dilation. No peripancreatic inflammatory c hange. GALLBLADDER: Surgically absent. ADRENAL GLANDS: No significant masses or asymmetry. RIGHT KIDNEY AND URETER: No solid masses. No significant calcification. No hydronephrosis or hydroure ter. LEFT KIDNEY AND URETER: No solid masses. Unchanged large left renal cyst measuring 10.5 cm. No hydr onephrosis or hydroureter. AORTA AND VESSELS: No aneurysm. No dissection. Renal arteries, SMA, celiac without stenosis. RETROPERITONEUM: No retroperitoneal adenopathy, hemorrhage or masses. LARGE AND SMALL BOWEL: No dilatation. No masses. No wall thickening. APPENDIX: Not visualized. ABDOMINAL WALL: No hernia or masses. PERITONEAL CAVITY: No free air. No free fluid. No peritoneal implants or masses. PELVIS: No acute bony abnormality. No suspicious osseous lesions. BONES: No significant or acute findings. OTHER: No other significant finding. IMPRESSION: See below TECHNICAL DOCUMENTATION: JOB ID: [id number] Quality ID # [id number]: Final reports with documentation of one or more dose reduction techniques (e.g., Au tomated exposure control, adjustment of the mA and/or kV according to patient size, use of iterative reconstruction technique) 2010 [employer]- All Rights Reserved TECHNIQUE: CT scan of the chest performed using helical scanning technique with dynamic intravenous contrast injection. Images reviewed with lung, soft tissue and bone windows. Reconstructed coronal a nd sagittal MPR images reviewed. All images stored on PACS. All CT scanners at this facility use dose modulation, iterative reconstruction, and/or weight based d osing when appropriate to reduce radiation dose to as low as reasonably achievable (ALARA). [facility]: Dose Right [facility]: CareDose [facility]: Dose Right [facility]: Teradose 4D [facility]: VelociData RADIATION DOSE: . LIMITATIONS: None. FINDINGS: AXILLAE: No adenopathy. CHEST WALL: No masses. No subcutaneous air. LUNGS: No nodules or masses. No pneumothorax. No infiltrates. PLEURA: No effusions. No calcifications. THYROID: No masses or significant asymmetry. HILAR AND MEDIASTINAL STRUCTURES: No identified masses or abnormal nodes. AORTA AND GREAT VESSELS: No aneurysm. No dissection. PULMONARY ARTERIES: No identified pulmonary emboli. Study not optimized for the pulmonary arteries. HEART: No pericardial effusion. HARDWARE AND LIFELINES: None. BONES: No significant finding. OTHER: Small fat containing posterior left diaphragmatic hernia. IMPRESSION: 1. No evidence of metastatic disease within the chest, abdomen or pelvis. 2. No acute intrathoracic findings. No acute intra-abdominal/ pelvic findings. 3. 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 Mildly decreased size of t he complex collection along the pancreatic tail. 4. Stable large left renal cyst. Reading location - IP/workstation name: [email or web address]
== END ==
LOC: RAD 08:29
PROVIDERS: ATTEND Physician Assistant Medical
DX: C25.2 Malignant neoplasm of tail of pancreas (principal); N28.1 Cyst of kidney, acquired
CPT/HCPCS: 71260; 74177

== ENCOUNTER → 2020-10-14 | Outpatient (CLI) | payer MEDICARE ==
--- NOTE | 2020-10-15 08:57 | RADIOLOGY REPORT (SQ) ---
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 TECHNIQUE: Blood glucose level was verified. Above dose of FDG was injected intravenously. 2-D seg mented attenuation correction images were obtained from the base of the skull to the midthighs. Nonc ontrast CT images were obtained for attenuation correction and fusion with emission images. CT image s were performed without oral or intravenous contrast and are not sensitive for parenchymal lesions. A series of overlapping emission PET images were obtained. Images reviewed and manipulated at [facility] work station by the radiologist. Images stored on PACS. LIMITATIONS: None. FINDINGS: HEAD AND NECK: No areas of abnormal metabolic activity in the soft tissues of the head and neck. CHEST: No areas of abnormal metabolic activity in the chest. ABDOMEN AND PELVIS: No areas of abnormal metabolic activity in the abdomen or pelvis. Expected physi ologic activity is present in the genitourinary system and bowel. PROXIMAL LOWER EXTREMITIES: No areas of abnormal metabolic activity in the soft tissues of the lower extremities. BONES: No abnormal metabolic activity in the visualized skeleton. ADDITIONAL CT FINDINGS: Large left renal cyst is again noted. OTHER: No other significant findings. IMPRESSION: Negative PET-CT. TECHNICAL DOCUMENTATION: JOB ID: [id number] 2010 [employer]- All Rights Reserved Reading location - IP/workstation name: [email or web address]
== END ==
LOC: RAD 08:28
PROVIDERS: ATTEND Internal Medicine
DX: C25.2 Malignant neoplasm of tail of pancreas (principal)
CPT/HCPCS: 78815; A9552